=== PATIENT | female | born 1960 | race Two or more races ===

== ENCOUNTER 2018-06-08 07:31 | Outpatient (CLI) | payer OTHER | END 2018-06-08 15:44 | disposition home or self-care (01) | LOC: SONOGRAMA 07:31 | DX: E04.1 Nontoxic single thyroid nodule (principal) ==

== ENCOUNTER 2020-02-20 07:51 | Outpatient (CLI) | payer OTHER | END 2020-02-20 08:02 | disposition home or self-care (01) | LOC: SONOGRAMA 07:51 | PROVIDERS: ATTEND Pathology Anatomic Pathology & Clinical Pathology | DX: E04.2 Nontoxic multinodular goiter (principal) ==